=== PATIENT | male | born 2000 | race Caucasian/White ===

== ENCOUNTER 2021-03-06 21:42 | Emergency (ER) | payer SELFPAY ==
[2021-03-06] MEDS ORDERED: Acetaminophen 500 MG TAB ONE (22:21)
[2021-03-06] MEDS ORDERED: Ibuprofen 200 MG TAB ONE (22:21)
== END 2021-03-06 22:35 | disposition home or self-care (01) ==
LOC: CSHERS 21:42
DX: S06.0X1A Concussion with loss of consciousness of 30 minutes or less, initial encounter (principal); W22.8XXA Striking against or struck by other objects, initial encounter
CPT/HCPCS: 93005